=== PATIENT | male | born 1990 ===

== ENCOUNTER 2020-12-15 13:55 | Emergency (ER) | payer OTHER ==
[~2020-12-15] VITALS: Ht 172.7 cm; Wt 94.7 kg
[2020-12-15 14:16] VITALS: BP 141/87
--- NOTE | 2020-12-15 15:45 | NUR ---
freelance data entry note: Pt to room from lobby.
--- NOTE | 2020-12-15 16:24 | NUR ---
erp at bs for eval
--- NOTE | 2020-12-15 16:33 | NUR ---
PT RESTING ON GURNEY, WITH SON & . CALL LIGHT WITHIN REACH. PT DENIES ANY NEEDS AT THIS TIME
--- NOTE | 2020-12-15 17:14 | NUR ---
Patient given discharge instructions and RX, they have confirmed that they understand the instructions. Patient ambulatory with steady gait.
== END 2020-12-15 18:14 | disposition home or self-care (01) ==
LOC: ED 17:58
DX: U07.1 COVID-19 (principal); H61.21 Impacted cerumen, right ear; H66.91 Otitis media, unspecified, right ear; R06.02 Shortness of breath
CPT/HCPCS: 71045; 99284; U0003; U0005